=== PATIENT | male | born 1955 | race Caucasian/White ===

== ENCOUNTER → 2021-07-24 08:58 | Outpatient (BNVA) | payer MEDICARE, SELFPAY | PROVIDERS: PCP Internal Medicine; Visit Provider Psychiatry & Neurology Neurology | DX: G20 Parkinson's disease (principal) | CPT/HCPCS: 99202 ==

== ENCOUNTER → 2021-10-02 14:31 | Outpatient (BNVA) | payer MEDICARE, SELFPAY | PROVIDERS: PCP Internal Medicine; Visit Provider Psychiatry & Neurology Neurology | DX: G20 Parkinson's disease (principal); Z79.899 Other long term (current) drug therapy | CPT/HCPCS: 99212 ==

== ENCOUNTER → 2022-01-01 15:24 | Outpatient (BNVA) | payer MEDICARE, SELFPAY | PROVIDERS: PCP Internal Medicine; Visit Provider Psychiatry & Neurology Neurology | DX: G20 Parkinson's disease (principal) | CPT/HCPCS: 99212 ==

== ENCOUNTER → 2022-07-02 15:29 | Outpatient (BNVA) | payer MEDICARE, SELFPAY | PROVIDERS: PCP Internal Medicine; Visit Provider Psychiatry & Neurology Neurology | DX: G20 Parkinson's disease (principal) | CPT/HCPCS: 99212 ==

== ENCOUNTER → 2022-09-15 08:00 | Outpatient (BNVA) | payer MEDICARE, SELFPAY | PROVIDERS: PCP Internal Medicine; Visit Provider Psychiatry & Neurology Neurology | DX: G20 Parkinson's disease (principal) | CPT/HCPCS: 99212 ==

== ENCOUNTER 2023-03-12 11:01 | Outpatient (AMB) | payer MEDICARE, SELFPAY ==
--- NOTE | 2023-03-12 11:10 | A.OFFVIS_ITS ---
Intake Vital Signs 03/12/23 11:13 Height 5 ft 8 in Weight 197 lb 6 oz BMI 30.0 BP 120/66 Blood Pressure Location Lt brachial Position Sitting Pulse 79 Pulse Source Pulse Oximeter Pulse Oximetry (%) 98 Oxygen Delivery Method Room Air Intake Visit Reasons: f/u appt for sleep problems per MD - confirmed Allergies No Known Allergies Allergy (Verified 03/12/23 11:15) HPI HPI Comments History of Present Illness Details 67 y/o [place] right handed male come s for follow up Parkinson's disease. Pt stopped amantadine because of the expense. His symptoms have worsened since then. Pt's mouth tremor has worsened, but denies difficulty chewing or swallowing. He is on Sinemet 2 tabs QID. Denies light headedness or hallucinations. Memory- slow Sleep-no screaming , no REM behavior disorder Mood-normal Motivation- good Speech- slow. Hand writing- worse Utensils- difficulty cutting his meat Personal hygiene- better. No double vision No constipation PFSH Medical History Hyperlipidemia Cataract Surgical History History of colon surgery Family History Mother No problems noted. Father No problems noted. Brother No problems noted. Sister No problems noted. Social History Household Members: Spouse Alcohol intake: current Alcohol intake frequency: 0-2 drinks per day Patient Tobacco Use Status: Former Tobacco user Review of Systems Const All systems reviewed & are unremarkable except as noted in HPI and below Physical Exam Vital Signs: Last Vital Signs Pulse 79 03/12/23 11:13 BP 120/66 03/12/23 11:13 Pulse Ox 98 03/12/23 11:13 Oxygen Delivery Method Room Air 03/12/23 11:13 BMI result Body Mass Index 30.0 Const General: cooperative, healthy appearing, comfortable and no acute distress Nutritional Appearance: average body habitus Orientation/consciousness: patient oriented x3 HEENT Head: Yes normal to inspection Neck Other: stiffness Neck: Yes normal visual inspection and Yes full ROM Neuro Other: UPDRS - 3 Speech 2.Monotone,slurred but understandable,moderately impaired Facial expression 2-Mild hypomimia, perioral dyskinesias Rest Tremors( head, Upper, lower ) 2-Mild in amplitude and persistent-R Action and Postural tremors 0 - no tremors Rigidity 2-Mild to Moderate R>L Finger Taps 2-Moderately impaired. Early fatiguing and occasional arrests in movement R>L Hand movements 2-Moderately impaired.Definite and early fatiguing, may have occasional arrests in movement. Rapid Alternating Movements of Hands 2-Moderately impaired. Definite and early fatiguing. May have occasional arrests in movement. Leg agility 2-moderately impaired.Definite and early fatiguing , may have occasional arrest in movement. Arising from a chair 0-normal Posture 1- mild stoop Gait 1-good stride mild stoop, mild decreased arms wings R>L Postural stability 1-retropulsion but recovers unaided Body bradykinesia and hypokinesia 2-Mild degree of slowness and poverty of movement or some reduced amplitude . General: patient oriented x3 Assessment & Plan Assessment & Plan (1) Parkinson's disease: Code(s): G20 - Parkinson's disease (2) Tremors of nervous system: Code(s): R25.1 - Tremor, unspecified Plan Continue sinemet 25/100 2 tabs 4 times a day . He registered at [facility] and will restart amantadine 100mg bid. Continue exercise. Medications: New amantadine HCl 100 mg PO BID 90 days 180 tabs 3RF Coding Level of Care Code Est Pt Level 3 (44942) Diagnoses Parkinson's disease G20 Tremors of nervous system R25.1
[2023-03-12 11:13] VITALS: BP 120/66; PULSE 79; O2SAT 98
== END 2023-03-12 11:27 | disposition home or self-care (01) ==
PROVIDERS: PCP Internal Medicine; Visit Provider Nurse Practitioner Family
DX: G20.A1 Parkinson's disease without dyskinesia, without mention of fluctuations (principal)
CPT/HCPCS: 99213

== ENCOUNTER → 2023-03-12 11:01 | Outpatient (BNVA) | payer MEDICARE, SELFPAY | PROVIDERS: PCP Internal Medicine; Visit Provider Nurse Practitioner Family | DX: G20.A1 Parkinson's disease without dyskinesia, without mention of fluctuations (principal) | CPT/HCPCS: 99212 ==

== ENCOUNTER 2023-06-04 07:31 | Outpatient (AMB) | payer MEDICARE, SELFPAY ==
--- NOTE | 2023-06-04 07:38 | MHC.OFFVIS ---
Intake Vital Signs 06/04/23 07:39 Respiration 16 Pulse 88 Pulse Source Pulse Oximeter Pulse Oximetry (%) 97 Intake Visit Reasons: 4m follow up Parkinson's-Confirmed Intake Note: Pt presents for a 4 month follow up for Parkinson's. Assurance Sourcing Manager Required: No Allergies No Known Allergies Allergy (Verified 06/04/23 07:38) Medication List - Last Reconciled 06/04/23 by Mara Vazquez MD amantadine HCl 100 mg PO BID 90 days atorvastatin 10 mg PO DAILY carbidopa-levodopa 25-100 mg 2 tabs PO QID 90 days latanoprost 0.005% 0 drps ophthalmic (eye) HPI HPI Comments History of Present Illness Details 67 y/o English right handed male comes for follow up Parkinson's disease.His daughter notices more head tremors and also speech is mildly worse. It marks snot bother him. Pt's mouth tremor has worsened, but denies difficulty chewing or swallowing. He is on Sinemet 2 tabs QID. Denies light headedness or hallucinations. Memory- slow Sleep-no screaming , no REM behavior disorder Mood-normal Motivation- good Speech- slow. Hand writing- worse Utensils- difficulty cutting his meat Personal hygiene- better. No double vision No constipation PFSH Medical History (Updated 04/02/23 @ 08:10 by Mara Vazquez MD) Parkinson's disease without dyskinesia or fluctuating manifestations Hyperlipidemia Cataract Surgical History History of colon surgery Family History Mother No problems noted. Father No problems noted. Brother No problems noted. Sister No problems noted. Social History Household Members: Spouse Alcohol intake: current Alcohol intake frequency: 0-2 drinks per day Patient Tobacco Use Status: Former Tobacco user Physical Exam Vital Signs: Last Vital Signs Pulse 88 06/04/23 07:39 Resp 16 06/04/23 07:39 Pulse Ox 97 06/04/23 07:39 Const General: cooperative, healthy appearing, comfortable and no acute distress Nutritional Appearance: average body habitus Orientation/consciousness: patient oriented x3 HEENT Head: Yes normal to inspection Neck Other: stiffness Neck: Yes normal visual inspection and Yes full ROM Neuro Other: UPDRS - 3 Restricted shoulder movement Speech 2.Monotone,slurred but understandable,moderately impaired Facial expression 2-Mild hypomimia, perioral dyskinesias Rest Tremors( head, Upper, lower ) 2-Mild in amplitude and persistent-R Action and Postural tremors 0 - no tremors Rigidity 2-Mild to Moderate R>L Finger Taps 2-Moderately impaired. Early fatiguing and occasional arrests in movement R>L Hand movements 2-Moderately impaired.Definite and early fatiguing, may have occasional arrests in movement. Rapid Alternating Movements of Hands 2-Moderately impaired. Definite and early fatiguing. May have occasional arrests in movement. Leg agility 2-moderately impaired.Definite and early fatiguing , may have occasional arrest in movement. Arising from a chair 0-normal Posture 1- mild stoop Gait 1-good stride mild stoop, mild decreased arms wings R>L Postural stability 1-retropulsion but recovers unaided Body bradykinesia and hypokinesia 2-Mild degree of slowness and poverty of movement or some reduced amplitude . General: patient oriented x3 Assessment & Plan Assessment & Plan (1) Parkinson's disease: Code(s): G20 - Parkinson's disease (2) Tremors of nervous system: Code(s): R25.1 - Tremor, unspecified Plan Continue sinemet 25/100 2 tabs 4 times a day . amantadine 100mg bid. Continue exercise. PT and Speech therapy Orders: Orders PT Evaluation and Treatment Today G20.A1 - Parkinson's disease without dyskinesia, without mention of fluctuations Referrals Speech and Hearing Referral G20.A1 - Parkinson's disease without dyskinesia, without mention of fluctuations Medications: Refilled atorvastatin 10 mg PO DAILY 90 tabs 4RF amantadine HCl 100 mg PO BID 90 days 180 tabs 3RF carbidopa-levodopa 25-100 mg 2 tabs PO QID 90 days 720 tabs 1RF Coding Level of Care Code Est Pt Level 4 (62201) Diagnoses Parkinson's disease G20 Tremors of nervous system R25.1
[2023-06-04 07:39] VITALS: PULSE 88; RESP 16; O2SAT 97
== END 2023-06-04 08:02 | disposition home or self-care (01) ==
PROVIDERS: PCP Internal Medicine; Visit Provider Psychiatry & Neurology Neurology
DX: G20.B1 Parkinson's disease with dyskinesia, without mention of fluctuations (principal)
CPT/HCPCS: 99214

== ENCOUNTER → 2023-06-04 07:31 | Outpatient (BNVA) | payer MEDICARE, SELFPAY | PROVIDERS: PCP Internal Medicine; Visit Provider Psychiatry & Neurology Neurology | DX: G20.A1 Parkinson's disease without dyskinesia, without mention of fluctuations (principal) | CPT/HCPCS: 99212 ==

== ENCOUNTER 2023-10-06 07:27 | Outpatient (AMB) | payer MEDICARE, SELFPAY ==
--- NOTE | 2023-10-06 07:35 | MHC.OFFVIS ---
Vital Signs 10/06/23 07:36 Height 5 ft 8 in Weight 196 lb 8 oz BMI 29.9 BP 128/76 Blood Pressure Location Rt brachial Position Sitting Respiration 16 Pulse 72 Pulse Source Pulse Oximeter Pulse Oximetry (%) 99 Oxygen Delivery Method Room Air Intake Visit Reasons: 4m follow up Parkinson's - Confirmed Intake Note: Pt presents to the office for 4 month follow up for Parkinson's. Allergies No Known Allergies Allergy (Verified 10/06/23 07:35) Medication List - Last Reconciled 10/06/23 by Mara Vazquez MD amantadine HCl 100 mg PO BID 90 days atorvastatin 10 mg PO DAILY carbidopa-levodopa 25-100 mg 2 tabs PO QID 90 days latanoprost 0.005% 0 drps ophthalmic (eye) HPI Comments Details: 67 y/o Bulgarian right handed male comes for follow up Parkinson's disease.He is doing good. He is more active - in his garden and taking care of chickens . He had 1 fall in his yard . Mood-normal Motivation- good Speech- slow. Hand writing- worse Utensils- difficulty cutting his meat Personal hygiene- better. No double vision No constipation [facility] Medical History Parkinson's disease without dyskinesia or fluctuating manifestations Hyperlipidemia Cataract Surgical History History of colon surgery Family History Mother No problems noted. Father No problems noted. Brother No problems noted. Sister No problems noted. Social History Household Members: Spouse Alcohol intake: current Alcohol intake frequency: 0-2 drinks per day Patient Tobacco Use Status: Former Tobacco user Physical Exam Vital Signs: Last Vital Signs Pulse 72 10/06/23 07:36 Resp 16 10/06/23 07:36 BP 128/76 10/06/23 07:36 Pulse Ox 99 10/06/23 07:36 Oxygen Delivery Method Room Air 10/06/23 07:36 BMI result Body Mass Index 29.9 Const General: cooperative, healthy appearing, comfortable and no acute distress Nutritional Appearance: average body habitus Orientation/consciousness: patient oriented x3 HEENT Head: Yes normal to inspection Neck Other: stiffness Neck: Yes normal visual inspection and Yes full ROM Neuro Other: UPDRS - 3 Restricted shoulder movement Speech 2.Monotone,slurred but understandable,moderately impaired Facial expression 2-Mild hypomimia, perioral dyskinesias Rest Tremors( head, Upper, lower ) 2-Mild in amplitude and persistent-R Action and Postural tremors 0 - no tremors Rigidity 2-Mild to Moderate R>L Finger Taps 2-Moderately impaired. Early fatiguing and occasional arrests in movement R>L Hand movements 2-Moderately impaired.Definite and early fatiguing, may have occasional arrests in movement. Rapid Alternating Movements of Hands 2-Moderately impaired. Definite and early fatiguing. May have occasional arrests in movement. Leg agility 2-moderately impaired.Definite and early fatiguing , may have occasional arrest in movement. Arising from a chair 0-normal Posture 1- mild stoop Gait 1-good stride mild stoop, mild decreased arms wings R>L Postural stability 1-retropulsion but recovers unaided Body bradykinesia and hypokinesia 2-Mild degree of slowness and poverty of movement or some reduced amplitude . General: patient oriented x3 Assessment & Plan Assessment & Plan (1) Parkinson's disease without dyskinesia or fluctuating manifestations: Code(s): G20.A1 - Parkinson's disease without dyskinesia, without mention of fluctuations Category: Medical (2) Tremors of nervous system: Code(s): R25.1 - Tremor, unspecified Category: Medical Plan Continue sinemet 25/100 2 tabs 4 times a day . amantadine 100mg bid. Continue exercise. I will trial him on citalopram 10 mg qd for mood Medications: New citalopram 10 mg PO DAILY 30 tabs 6RF Coding Level of Care Code Est Pt Level 4 (07056) Complex EM visit Add On G2211 Diagnoses Parkinson's disease without dyskinesia or fluctuating manifestations G20.A1 Tremors of nervous system R25.1
[2023-10-06 07:36] VITALS: BP 128/76; PULSE 72; RESP 16; O2SAT 99; BMI 29.9
== END 2023-10-06 07:56 | disposition home or self-care (01) ==
PROVIDERS: PCP Internal Medicine; Visit Provider Psychiatry & Neurology Neurology
DX: G20.A1 Parkinson's disease without dyskinesia, without mention of fluctuations (principal); R25.1 Tremor, unspecified
CPT/HCPCS: 99214; G2211

== ENCOUNTER → 2023-10-06 07:27 | Outpatient (BNVA) | payer MEDICARE, SELFPAY | PROVIDERS: PCP Internal Medicine; Visit Provider Psychiatry & Neurology Neurology | DX: G20.A1 Parkinson's disease without dyskinesia, without mention of fluctuations (principal); Z79.899 Other long term (current) drug therapy | CPT/HCPCS: 99212 ==

== ENCOUNTER 2023-11-10 16:28 | Outpatient (REF) | payer MEDICARE, SELFPAY ==
--- NOTE | ~2023-11-10 | US_ITS ---
EXAMINATION: US VENOUS ULTRASOUND WITH DOPPLER LOWER EXTREMITY, RIGHT CLINICAL INFORMATION: Rule out DVT, right lower extremity pain COMPARISON: None available. TECHNIQUE: Ultrasound of the deep veins is performed from the hip to the calf with compression sonography and color and pulse Doppler assessment. Spectral analysis with color-flow imaging is performed. FINDINGS: There is normal venous compression and respiratory variation and augmented flow. The visualized common femoral vein, superficial femoral vein, profunda femoral vein, popliteal vein, and the trifurcation region shows no evidence of deep venous thrombosis. There is no significant popliteal fossa cyst. Multiple prominent varicose veins in the calf. US/US venous duplex LE RT IMPRESSION: No DVT demonstrated in the right lower extremity.
== END 2023-11-10 16:29 | disposition home or self-care (01) ==
LOC: HO.US 16:28
PROVIDERS: PCP Internal Medicine; Visit Provider Internal Medicine
DX: R60.0 Localized edema (principal); M79.604 Pain in right leg
CPT/HCPCS: 93971

== ENCOUNTER 2024-04-07 07:31 | Outpatient (AMB) | payer MEDICARE, SELFPAY ==
--- NOTE | 2024-04-07 07:34 | MHC.OFFVIS ---
Vital Signs 04/07/24 07:35 Height 5 ft 8 in Weight 201 lb BMI 30.6 BP 124/82 Blood Pressure Location Rt brachial Position Sitting Intake Visit Reasons: Follow up Parkinson's Intake Note: Patient presents for follow up parkinsons Allergies No Known Allergies Allergy (Verified 04/07/24 07:40) Medication List - Last Reconciled 04/07/24 by Mara Vazquez MD amantadine HCl 100 mg PO BID 90 days atorvastatin 10 mg PO DAILY carbidopa-levodopa 25-100 mg 2 tabs PO QID 90 days citalopram 10 mg PO DAILY diclofenac sodium 1% 4 grams topical QID latanoprost 0.005% 0 drps ophthalmic (eye) HPI Comments Details: 68 y/o [place] right handed male comes for follow up Parkinson's disease.He is doing good with parkinsons symptoms but has increased right shoulder and upper arm pain which affects his sleep. he is active in summer but marks snot have any exericse in colder months. He is more active in warmer months - in his garden and taking care of chickens . No falls Motivation- good Speech- slow. Hand writing- worse Utensils- difficulty cutting his meat Personal hygiene- better. No double vision No constipation Mood- Ok He is independant in all ADLS. [facility] Medical History Right shoulder pain Parkinson's disease without dyskinesia or fluctuating manifestations Hyperlipidemia Cataract Surgical History History of colon surgery Family History Mother No problems noted. Father No problems noted. Brother No problems noted. Sister No problems noted. Social History Household Members: Spouse Alcohol intake: current Alcohol intake frequency: 0-2 drinks per day Patient Tobacco Use Status: Former Tobacco user Physical Exam Vital Signs: Last Vital Signs BP 124/82 04/07/24 07:35 BMI result Body Mass Index 30.6 Const General: cooperative, healthy appearing, comfortable and no acute distress Nutritional Appearance: average body habitus Orientation/consciousness: patient oriented x3 HEENT Head: Yes normal to inspection Neck Other: stiffness Neck: Yes normal visual inspection and Yes full ROM Neuro Other: UPDRS - 3 Restricted shoulder movement Speech 2.Monotone,slurred but understandable,moderately impaired Facial expression 2-Mild hypomimia, perioral dyskinesias Rest Tremors( head, Upper, lower ) 2-Mild in amplitude and persistent-R Action and Postural tremors 0 - no tremors Rigidity 2-Mild to Moderate R>L Finger Taps 2-Moderately impaired. Early fatiguing and occasional arrests in movement R>L Hand movements 2-Moderately impaired.Definite and early fatiguing, may have occasional arrests in movement. Rapid Alternating Movements of Hands 2-Moderately impaired. Definite and early fatiguing. May have occasional arrests in movement. Leg agility 2-moderately impaired.Definite and early fatiguing , may have occasional arrest in movement. Arising from a chair 0-normal Posture 1- mild stoop Gait 1-good stride mild stoop, mild decreased arms wings R>L Postural stability 1-retropulsion but recovers unaided Body bradykinesia and hypokinesia 2-Mild degree of slowness and poverty of movement or some reduced amplitude . General: patient oriented x3 Assessment & Plan Assessment & Plan (1) Parkinson's disease without dyskinesia or fluctuating manifestations: Code(s): G20.A1 - Parkinson's disease without dyskinesia, without mention of fluctuations Category: Medical (2) Tremors of nervous system: Code(s): R25.1 - Tremor, unspecified Category: Medical Plan Continue sinemet 25/100 2 tabs 4 times a day ( trial 2- 1.5-2-1.5) amantadine 100mg bid. Continue exercise. citalopram 10 mg qd for mood Diclofenac gel 1 % for right shoulder PT for parkinsons and right shoulder Orders: Orders PT Evaluation and Treatment Today G20.A1 - Parkinson's disease without dyskinesia, without mention of fluctuations, M25.511 - Pain in right shoulder Medications: New diclofenac sodium 1% apply to Right shoulder 4 grams topical QID 100 grams 0RF Refilled amantadine HCl 100 mg PO BID 90 days 180 tabs 4RF citalopram 10 mg PO DAILY 90 tabs 6RF carbidopa-levodopa 25-100 mg 2 tabs PO QID 90 days 720 tabs 4RF Coding Level of Care Code Est Pt Level 4 (77582) Complex EM visit Add On G2211 Diagnoses Parkinson's disease without dyskinesia or fluctuating manifestations G20.A1 Tremors of nervous system R25.1
[2024-04-07 07:35] VITALS: BP 124/82; BMI 30.6
== END 2024-04-07 08:05 | disposition home or self-care (01) ==
PROVIDERS: PCP Internal Medicine; Visit Provider Psychiatry & Neurology Neurology
DX: G20.A1 Parkinson's disease without dyskinesia, without mention of fluctuations (principal); M25.511 Pain in right shoulder
CPT/HCPCS: 99214; G2211

== ENCOUNTER → 2024-04-07 07:31 | Outpatient (BNVA) | payer MEDICARE, SELFPAY | PROVIDERS: PCP Internal Medicine; Visit Provider Psychiatry & Neurology Neurology | DX: G20.A1 Parkinson's disease without dyskinesia, without mention of fluctuations (principal) | CPT/HCPCS: 99212 ==

== ENCOUNTER 2024-09-28 07:21 | Outpatient (AMB) | payer MEDICARE, SELFPAY ==
--- NOTE | 2024-09-28 07:32 | A.OFFVIS_ITS ---
Vital Signs 09/28/24 07:33 Height 5 ft 8 in Weight 202 lb BMI 30.7 BP 130/82 Blood Pressure Location Rt brachial Position Sitting Intake Visit Reasons: follow up Intake Note: patient presents for follow up PT referral. called [facility] in [place] they stated they cannot fax notes. patient would have to visit website and request these notes. spoke with she will obtain these prior to visit Allergies No Known Allergies Allergy (Verified 09/28/24 07:35) HPI Comments Details: 68 y/o Armenian right handed male comes for follow up Parkinson's disease.He is doing good with parkinsons symptoms- ran out of amantadine and feel his head and mouth movements have worsened sicn lucy His shoulder is better. He says it takes 30 minutes for the medicine to start working he is active in summer and planning to go to [facility]. He is more active in warmer months - in his garden and taking care of chickens . No falls Motivation- good Speech- slow. Hand writing- worse Utensils- difficulty cutting his meat Personal hygiene- better. No double vision No constipation Mood- Ok He is independent in all ADLS. He has sleep issues- loud snoring and excessive dyatime fatigue REPLACED BY [facility] Medical History (Updated 09/28/24 @ 07:58 by Mara Vazquez MD) Hypersomnia Snoring Right shoulder pain Parkinson's disease without dyskinesia or fluctuating manifestations Hyperlipidemia Cataract Surgical History History of colon surgery Family History Mother No problems noted. Father No problems noted. Brother No problems noted. Sister No problems noted. Social History Household Members: Spouse Alcohol intake: current Alcohol intake frequency: 0-2 drinks per day Patient Tobacco Use Status: Former Tobacco user Physical Exam Vital Signs: Last Vital Signs BP 130/82 09/28/24 07:33 BMI result Body Mass Index 30.7 Const General: cooperative, healthy appearing, comfortable and no acute distress Nutritional Appearance: average body habitus Orientation/consciousness: patient oriented x3 HEENT Head: Yes normal to inspection Neck Other: stiffness Neck: Yes normal visual inspection and Yes full ROM Neuro Other: UPDRS - 3 Restricted shoulder movement Speech 2.Monotone,slurred but understandable,moderately impaired Facial expression 2-Mild hypomimia, perioral dyskinesias Rest Tremors( head, Upper, lower ) 2-Mild in amplitude and persistent-R Action and Postural tremors 0 - no tremors Rigidity 2-Mild to Moderate R>L Finger Taps 2-Moderately impaired. Early fatiguing and occasional arrests in movement R>L Hand movements 2-Moderately impaired.Definite and early fatiguing, may have occasional arrests in movement. Rapid Alternating Movements of Hands 2-Moderately impaired. Definite and early fatiguing. May have occasional arrests in movement. Leg agility 2-moderately impaired.Definite and early fatiguing , may have occasional arrest in movement. Arising from a chair 0-normal Posture 1- mild stoop Gait 1-good stride mild stoop, mild decreased arms wings R>L Postural stability 1-retropulsion but recovers unaided Body bradykinesia and hypokinesia 2-Mild degree of slowness and poverty of movement or some reduced amplitude . General: patient oriented x3 Assessment & Plan Assessment & Plan (1) Parkinson's disease without dyskinesia or fluctuating manifestations: Code(s): G20.A1 - Parkinson's disease without dyskinesia, without mention of fluctuations Category: Medical (2) Tremors of nervous system: Code(s): R25.1 - Tremor, unspecified Category: Medical (3) Snoring: Code(s): R06.83 - Snoring Category: Medical (4) Hypersomnia: Code(s): G47.10 - Hypersomnia, unspecified Category: Medical Plan Continue sinemet 25/100 2 tabs 4 times a day ( trial 2- 1.5-2-1.5) Restart amantadine 100mg bid. Continue exercise.- PT after he comes back from [facility] citalopram 10 mg qd for mood Home sleep test to r/o sleep apnea Medications: Changed From amantadine HCl 100 mg PO BID 90 days 180 tabs 4RF To amantadine HCl 100 mg PO BID 60 tabs 4RF 30 days Coding Level of Care Code Est Pt Level 4 (44002) Complex EM visit Add On G2211 Diagnoses Parkinson's disease without dyskinesia or fluctuating manifestations G20.A1 Tremors of nervous system R25.1 Snoring R06.83 Hypersomnia G47.10
[2024-09-28 07:33] VITALS: BP 130/82; BMI 30.7
== END 2024-09-28 08:08 | disposition home or self-care (01) ==
LOC: HO.HSMS 07:21
PROVIDERS: PCP Internal Medicine; Visit Provider Psychiatry & Neurology Neurology
DX: G20.A1 Parkinson's disease without dyskinesia, without mention of fluctuations (principal); R25.1 Tremor, unspecified; R06.83 Snoring; G47.10 Hypersomnia, unspecified
CPT/HCPCS: 99214; G2211

== ENCOUNTER → 2024-09-28 07:21 | Outpatient (BNVA) | payer MEDICARE, SELFPAY | PROVIDERS: PCP Internal Medicine; Visit Provider Psychiatry & Neurology Neurology | DX: G20.A1 Parkinson's disease without dyskinesia, without mention of fluctuations (principal); R06.83 Snoring; G47.10 Hypersomnia, unspecified | CPT/HCPCS: 99212 ==

== ENCOUNTER 2024-11-02 11:24 | Outpatient (AMB) | payer MEDICARE, SELFPAY ==
[2024-11-02 11:30] VITALS: BP 150/80; PULSE 77; O2SAT 96; BMI 29.2
--- NOTE | 2024-11-02 11:30 | MHC.OFFVIS ---
Vital Signs 11/02/24 11:30 Height 5 ft 8 in Weight 192 lb BMI 29.2 BP 150/80 H Blood Pressure Location Rt brachial Position Sitting Pulse 77 Pulse Source Pulse Oximeter Pulse Oximetry (%) 96 Oxygen Delivery Method Room Air Intake Visit Reasons: Urgent follow up per MD [employer] Required: No Accompanied by: Daughter Allergies No Known Allergies Allergy (Verified 11/02/24 11:35) Medication List - Last Reconciled 11/02/24 by Mara Vazquez MD amantadine HCl 100 mg PO BID 30 days MDD 200mg atorvastatin 10 mg PO DAILY carbidopa-levodopa 25-100 mg 2 tabs PO QID 90 days citalopram 10 mg PO DAILY latanoprost 0.005% 0 drps ophthalmic (eye) HPI Comments Details: 68 y/o Sami right handed male comes for follow up Parkinson's disease.He went to [facility] for 2 weeks . The first day - he was taken to ER for fever, shortness of breath .His tremors worsened and was anxious . He was treated with antibiotics.He was weak after that . [place] came [place] to [place] 1[place] ago and he had fever again- test were normal since his last visit he is slower. History from 09/28/25-He is doing good with parkinsons symptoms- ran out of amantadine and feel his head and mouth movements have worsened sicn lucy His shoulder is better. He says it takes 30 minutes for the medicine to start working he is active in summer and planning to go to [facility]. He is more active in warmer months - in his garden and taking care of chickens . No falls Motivation- good Speech- slow. Hand writing- worse Utensils- difficulty cutting his meat Personal hygiene- better. No double vision No constipation Mood- Ok He is independent in all ADLS. He has sleep issues- loud snoring and excessive dyatime fatigue [facility] Medical History Hypersomnia Snoring Right shoulder pain Parkinson's disease without dyskinesia or fluctuating manifestations Hyperlipidemia Cataract Surgical History History of colon surgery Family History Mother No problems noted. Father No problems noted. Brother No problems noted. Sister No problems noted. Social History Household Members: Spouse Alcohol intake: current Alcohol intake frequency: 0-2 drinks per day Patient Tobacco Use Status: Former Tobacco user Physical Exam Vital Signs: Last Vital Signs Pulse 77 11/02/24 11:30 BP 150/80 H 11/02/24 11:30 Pulse Ox 96 11/02/24 11:30 Oxygen Delivery Method Room Air 11/02/24 11:30 BMI result Body Mass Index 29.2 Const General: cooperative, healthy appearing, comfortable and no acute distress Nutritional Appearance: average body habitus Orientation/consciousness: patient oriented x3 HEENT Head: Yes normal to inspection Neck Other: stiffness Neck: Yes normal visual inspection and Yes full ROM Neuro Other: UPDRS - 3 Restricted shoulder movement Speech 2.Monotone,slurred but understandable,moderately impaired Facial expression 2-Mild hypomimia, perioral dyskinesias Rest Tremors( head, Upper, lower ) 2-Mild in amplitude and persistent-R Action and Postural tremors 0 - no tremors Rigidity 2-Mild to Moderate R>L Finger Taps 2-Moderately impaired. Early fatiguing and occasional arrests in movement R>L Hand movements 2-Moderately impaired.Definite and early fatiguing, may have occasional arrests in movement. Rapid Alternating Movements of Hands 2-Moderately impaired. Definite and early fatiguing. May have occasional arrests in movement. Leg agility 2-moderately impaired.Definite and early fatiguing , may have occasional arrest in movement. Arising from a chair 0-normal Posture 1- mild stoop Gait 1-good stride mild stoop, mild decreased arms wings R>L Postural stability 1-retropulsion but recovers unaided Body bradykinesia and hypokinesia 2-Mild degree of slowness and poverty of movement or some reduced amplitude . General: patient oriented x3 Assessment & Plan Assessment & Plan (1) Parkinson's disease without dyskinesia or fluctuating manifestations: Code(s): G20.A1 - Parkinson's disease without dyskinesia, without mention of fluctuations Category: Medical (2) Tremors of nervous system: Code(s): R25.1 - Tremor, unspecified Category: Medical (3) Snoring: Code(s): R06.83 - Snoring Category: Medical (4) Hypersomnia: Code(s): G47.10 - Hypersomnia, unspecified Category: Medical Plan Continue sinemet 25/100 2 tabs 4 times a day amantadine 100mg bid. Rasagiline 1mg qd Continue exercise.- PT after he comes back from [facility] citalopram 10 mg qd for mood Home sleep test to r/o sleep apnea- waiting Orders: Orders RT home sleep study Today G20.A1 - Parkinson's disease without dyskinesia, without mention of fluctuations PT Evaluation and Treatment Today G20.A1 - Parkinson's disease without dyskinesia, without mention of fluctuations Medications: New rasagiline 1 mg PO DAILY 30 tabs 6RF Coding Level of Care Code Est Pt Level 4 (66459) Complex EM visit Add On G2211 Diagnoses Parkinson's disease without dyskinesia or fluctuating manifestations G20.A1 Tremors of nervous system R25.1 Snoring R06.83 Hypersomnia G47.10
== END 2024-11-02 12:05 | disposition home or self-care (01) ==
LOC: HO.HSMS 11:25
PROVIDERS: PCP Internal Medicine; Visit Provider Psychiatry & Neurology Neurology
DX: G20.A1 Parkinson's disease without dyskinesia, without mention of fluctuations (principal); R25.1 Tremor, unspecified; R06.83 Snoring; G47.10 Hypersomnia, unspecified
CPT/HCPCS: 99214; G2211

== ENCOUNTER → 2024-11-02 11:24 | Outpatient (BNVA) | payer MEDICARE, SELFPAY | PROVIDERS: PCP Internal Medicine; Visit Provider Psychiatry & Neurology Neurology | DX: G20.A1 Parkinson's disease without dyskinesia, without mention of fluctuations (principal); G47.10 Hypersomnia, unspecified; R06.83 Snoring; Z79.899 Other long term (current) drug therapy | CPT/HCPCS: 99212 ==

== ENCOUNTER 2025-01-25 07:18 | Outpatient (AMB) | payer MEDICARE, SELFPAY ==
[2025-01-25 07:20] VITALS: BP 138/80; PULSE 79; O2SAT 96; BMI 30.3
--- NOTE | 2025-01-25 07:20 | MHC.OFFVIS ---
Vital Signs 01/25/25 07:20 Height 5 ft 8 in Weight 199 lb BMI 30.3 BP 138/80 Blood Pressure Location Rt brachial Position Sitting Pulse 79 Pulse Source Pulse Oximeter Pulse Oximetry (%) 96 Oxygen Delivery Method Room Air Intake Visit Reasons: 4m follow up Intake Note: Follow up Parkinson's disease without dyskinesia or fluctuating manifestations, Tremor, snoring and Hypersomnia Yarn Examiner Skeins Required: Yes Yarn Examiner Skeins Services: Yarn Examiner Skeins Offered & Declined Yarn Examiner Skeins Name: Son to intrerpret Allergies No Known Allergies Allergy (Verified 01/25/25 07:27) HPI Comments Details: 68 y/o Japanese right handed male comes for follow up Parkinson's disease.He has been less motivated since his trip to [facility]. He has not been exercising and feels tremors are worse.He seems depressed. No falls.He is independent in all his ADLS. History from 11/02/24-He went to [facility] for 2 weeks . The first day - he was taken to ER for fever, shortness of breath .His tremors worsened and was anxious . He was treated with antibiotics.He was weak after that . [place] came back [place] 1[place] ago and he had fever again- test were normal He is more active in warmer months - in his garden and taking care of chickens . No falls Motivation- good Speech- slow. Hand writing- worse Utensils- difficulty cutting his meat Personal hygiene- better. No double vision No constipation Mood- Ok He is independent in all ADLS. He has sleep issues- loud snoring and excessive dyatime fatigue [facility] Medical History Hypersomnia Snoring Right shoulder pain Parkinson's disease without dyskinesia or fluctuating manifestations Hyperlipidemia Cataract Surgical History History of colon surgery Family History Mother No problems noted. Father No problems noted. Brother No problems noted. Sister No problems noted. Social History Household Members: Spouse Alcohol intake: current Alcohol intake frequency: 0-2 drinks per day Patient Tobacco Use Status: Former Tobacco user Physical Exam Vital Signs: Last Vital Signs Pulse 79 01/25/25 07:20 BP 138/80 01/25/25 07:20 Pulse Ox 96 01/25/25 07:20 Oxygen Delivery Method Room Air 01/25/25 07:20 BMI result Body Mass Index 30.3 Const General: cooperative, healthy appearing, comfortable and no acute distress Nutritional Appearance: average body habitus Orientation/consciousness: patient oriented x3 HEENT Head: Yes normal to inspection Neck Other: stiffness Neck: Yes normal visual inspection and Yes full ROM Neuro Other: moderate dyskinesias Right UE rest tremors decreased facial expression and blink FFM decreased R>L Foot taps decreased R>L Gait- decreased arm swings R>L good stride and turning Speech - slurred hypophonia General: patient oriented x3 Assessment & Plan Assessment & Plan (1) Parkinson's disease without dyskinesia or fluctuating manifestations: Code(s): G20.A1 - Parkinson's disease without dyskinesia, without mention of fluctuations Category: Medical (2) Tremors of nervous system: Code(s): R25.1 - Tremor, unspecified Category: Medical (3) Snoring: Code(s): R06.83 - Snoring Category: Medical (4) Hypersomnia: Code(s): G47.10 - Hypersomnia, unspecified Category: Medical Plan Continue sinemet 25/100 2 tabs 4 times a day Increase amantadine 100mg tid. Rasagiline 1mg qd Continue exercise. He wants to do PT in winter. Increase citalopram 20 mg qd for mood Home sleep test to r/o sleep apnea- waiting Medications: Changed From amantadine HCl take one 100mg tablet BID daily for parkinson symptoms. 100 mg PO BID 30 days 60 tabs 4RF tremors MDD 200mg G20.A1 - Parkinson's disease without dyskinesia, without mention of fluctuations To amantadine HCl 100 mg PO TID 90 tabs 4RF tremors 30 days G20.A1 - Parkinson's disease without dyskinesia, without mention of fluctuations Coding Level of Care Code Est Pt Level 4 (51472) Complex EM visit Add On G2211 Diagnoses Parkinson's disease without dyskinesia or fluctuating manifestations G20.A1 Tremors of nervous system R25.1 Snoring R06.83 Hypersomnia G47.10
== END 2025-01-25 08:12 | disposition home or self-care (01) ==
LOC: HO.HSMS 07:19
PROVIDERS: PCP Internal Medicine; Visit Provider Psychiatry & Neurology Neurology
DX: G20.A1 Parkinson's disease without dyskinesia, without mention of fluctuations (principal); R25.1 Tremor, unspecified; R06.83 Snoring; G47.10 Hypersomnia, unspecified
CPT/HCPCS: 99214; G2211

== ENCOUNTER → 2025-01-25 07:18 | Outpatient (BNVA) | payer MEDICARE, SELFPAY | PROVIDERS: PCP Internal Medicine; Visit Provider Psychiatry & Neurology Neurology | DX: G20.A1 Parkinson's disease without dyskinesia, without mention of fluctuations (principal); R06.83 Snoring; G47.10 Hypersomnia, unspecified | CPT/HCPCS: 99212 ==

== ENCOUNTER → 2025-03-13 14:59 | Outpatient (REF) | payer MEDICARE, SELFPAY | LOC: HO.SL 14:59 | PROVIDERS: PCP Internal Medicine; Visit Provider Psychiatry & Neurology Neurology | DX: G20.A1 Parkinson's disease without dyskinesia, without mention of fluctuations (principal) | CPT/HCPCS: 95806 ==

== ENCOUNTER → 2025-03-14 15:12 | Outpatient (BNV) | payer MEDICARE, SELFPAY | PROVIDERS: PCP Internal Medicine; Visit Provider Psychiatry & Neurology Neurology | DX: R40.0 Somnolence (principal) | CPT/HCPCS: 95806 ==